=== PATIENT | female | born 1990 | race Caucasian/White ===

== ENCOUNTER 2017-03-27 14:43 | Emergency (ER) | payer MEDICARE ==
[2017-03-27 14:53] VITALS: BP 125/61
--- NOTE | 2017-03-27 15:55 | UC ---
Dental HPI - HPI Summary HPI Summary: states he has noticed swelling on right mandible for the past 4 days, he has several dental cavities but does not have dental insurance - History of Current Complaint Chief Complaint: UCDentalProblem Stated Complaint: FACIAL SWELLING Time Seen by Provider: 03/27/17 15:36 Hx Last Menstrual Period: 07/17/14 - Allergies/Home Medications Allergies/Adverse Reactions: Allergies Allergy/AdvReac Type Severity Reaction Status Date / Time No Known Allergies Allergy Verified 03/27/17 14:48 Home Medications: Home Medications Testosterone 1 syringe IM 03/27/17 [History] PMH/Surg Hx/FS Hx/Imm Hx - Surgical History Surgical History: None - Social History Alcohol Use: None Substance Use Type: None Smoking Status (MU): Current Every Day Smoker Type: Cigarettes Amount Used/How Often: 5-10 CIGARETTES Length of Time of Smoking/Using Tobacco: 1 1/2 YEARS Have You Smoked in the Last Year: Yes Review of Systems All Other Systems Reviewed And Are Negative: Yes Physical Exam Triage Information Reviewed: Yes Vital Signs: Initial Vital Signs Temp 98 F 03/27/17 14:50 Pulse 86 03/27/17 14:50 Resp 16 03/27/17 14:50 BP 125/61 03/27/17 14:50 Pulse Ox 100 03/27/17 14:50 Vital Signs Reviewed: Yes Eye Exam: Normal ENT: Positive: Hearing grossly normal, Pharynx normal, TMs normal Dental Exam: Other - dental sepsis and visible cavities in lower right quadrant premolars/molars Dental: Positive: Abscess @ Neck: Positive: Supple, Nontender, No Lymphadenopathy Respiratory Exam: Normal Respiratory: Positive: Lungs clear Cardiovascular Exam: Normal Dental Complaint Course/Dx - Course Course Of Treatment: dental abscess. Instructed to take amoxil as prescribed, PO fluids, smoking cessation - Differential Dx/Diagnosis Provider Diagnoses: Dental Abscess Discharge - Discharge Plan Condition: Stable Disposition: HOME Patient Education Materials: Dental Abscess (ED), How to Stop Smoking (ED) Referrals: Juarez Burrows DO [Primary Care Provider] - [facility] [Provider Group]
== END 2017-03-27 16:10 | disposition home or self-care (01) ==
LOC: UCEAST 14:43
DX: K04.7 Periapical abscess without sinus (principal); K02.9 Dental caries, unspecified; F17.210 Nicotine dependence, cigarettes, uncomplicated
CPT/HCPCS: 99212; G0463

== ENCOUNTER 2017-05-18 11:05 | Emergency (ER) | payer MEDICARE, MEDICAID ==
[2017-05-18] MEDS ORDERED: NS 0.9% 1000 ML* 1,000 ML IV ONE ×2 (11:33→11:35)
[2017-05-18] MEDS ORDERED: Ketorolac INJ* 30 MG/ML 1 ML VIAL IV ONE (11:35)
[2017-05-18 12:12] LABS: ABS Basophils 0 10^3/ul (0-0.2); ABS Eosinophils 0.1 10^3/ul (0-0.6); ABS Lymphocytes 1.2 10^3/ul (1.0-4.8); ABS Monocytes 0.5 10^3/ul (0-0.8); ABS Neutrophils 6.1 10^3/ul (1.5-7.7); ABS Nucleated RBC 0 10^3/ul; Eosinophil % 0.9 % (0-6); Hematocrit 43 % (35-47); Hemoglobin 14.8 g/dl (12.0-16.0); Mean Corpuscular HGB Conc 35 g/dl (31-36); Mean Corpuscular Hemoglobin 32 pg (27-31); Mean Corpuscular Volume 93 fL (80-97); Mean Platelet Volume 9 um3 (7.4-10.4); Nucleated Red Blood Cells % 0; Platelet Count 168 10^3/ul (150-450); Red Blood Count 4.58 10^6/ul (4.0-5.4); Red Cell Distribution Width 13 % (10.5-15); White Blood Count 7.9 10^3/ul (3.5-10.8)
[2017-05-18 12:49] LABS: EGFR Non-African American 84.2 (>60)
--- NOTE | 2017-05-18 13:00 | RAD ---
Indication: Left flank pain. CT of the abdomen and pelvis was performed without oral or IV contrast administration. Coronal and sagittal reconstructed images were obtained. The lung bases demonstrate no pleural fluid, nodules or masses. Heart is of normal size without evidence of pericardial effusion. Liver is normal in size. No focal lesions or intrahepatic ductal dilatation is noted. The gallbladder demonstrates no calcified gallstones. No pericholecystic fluid or wall thickening is noted. Spleen is normal in size. The pancreas demonstrates no mass or pancreatic duct dilatation. The common duct is not dilated. No adrenal lesions are noted. There is left hydronephrosis noted. There is a calculus in the left proximal ureter measuring 3 mm. Mild left hydronephrosis is noted. No retroperitoneal lymphadenopathy is noted. CT of the pelvis demonstrates ovaries to be unremarkable. No hernias are noted. The urinary bladder is unremarkable. No free fluid is identified. IMPRESSION: Calculus in the proximal left ureter measuring approximately 3 mm. Mild left hydronephrosis is noted.
[2017-05-18 13:09] LABS: Urine Appearance Cloudy; Urine Blood 3+ (Negative); Urine Color Yellow; Urine Ketones Negative (Negative); Urine Protein Negative (Negative); Urine Specific Gravity 1.016 (1.010-1.030); Urine Urobilinogen Negative (Negative)
[2017-05-18 14:15] VITALS: BP 99/68
--- NOTE | 2017-05-18 18:01 | ED ---
Wild Holcomb Angela, scribed for Williams Villasenor MD on 05/18/17 at 1137 . Abdominal Pain/Female - HPI Summary HPI Summary: This pt is a 27 y/o female [facility] [place]/o left sided abdominal pain since 08:30 this morning. Pt reports her pain began suddenly this morning and woke her up from sleep. Pt states the pain radiates to her left sided back. She additionally notes nausea and vomiting. Pt describes her vomit as bile. Pt is a current smoker. - History of Current Complaint Chief Complaint: EDAbdPain Stated Complaint: LT FLANK PAIN,VOMITING Time Seen by Provider: 05/18/17 11:32 Hx Obtained From: Patient Hx Last Menstrual Period: 07/17/14 Onset/Duration: Lasting Hours, Still Present Timing: Constant Severity Currently: Severe Pain Intensity: 10 Pain Scale Used: 0-10 Numeric Location: Other - left sided Radiates: Yes Radiates to: Back Aggravating Factor(s): Nothing Alleviating Factor(s): Nothing Associated Signs and Symptoms: Positive: Back Pain, Nausea, Vomiting Allergies/Adverse Reactions: Allergies Allergy/AdvReac Type Severity Reaction Status Date / Time No Known Allergies Allergy Verified 03/27/17 14:48 PMH/Surg Hx/FS Hx/Imm Hx Endocrine/Hematology History: Denies: Hx Diabetes, Hx Thyroid Disease Cardiovascular History: Denies: Hx Hypertension Respiratory History: Reports: Hx Asthma - Exercise induced Denies: Hx Chronic Obstructive Pulmonary Disease (COPD) GI History: Denies: Hx Ulcer Infectious Disease History: No Infectious Disease History: Denies: Hx Clostridium Difficile, Hx Hepatitis, Hx Human Immunodeficiency Virus (HIV), Hx of Known/Suspected MRSA, Hx Shingles, Hx Tuberculosis, Hx Known/ Suspected VRE, Hx Known/Suspected VRSA, History Other Infectious Disease, Traveled Outside the [place] in Last 30 Days - Family History Known Family History: Positive: Cardiac Disease - Father, Diabetes - Father, Renal Disease - Father - Social History Alcohol Use: None Substance Use Type: Reports: None Smoking Status (MU): Current Every Day Smoker Type: Cigarettes Amount Used/How Often: 5-10 CIGARETTES Length of Time of Smoking/Using Tobacco: 1 1/2 YEARS Have You Smoked in the Last Year: Yes Review of Systems Negative: Fever, Chills Positive: Abdominal Pain - left sided, Vomiting, Nausea Musculoskeletal: Negative Skin: Negative Neurological: Negative All Other Systems Reviewed And Are Negative: Yes Physical Exam - Summary Physical Exam Summary: VITAL SIGNS: Reviewed. GENERAL: Patient is a well-developed and nourished female who is lying comfortable in the stretcher. Patient is not in any acute respiratory distress. HEAD AND FACE: Normocephalic and atraumatic. EYES: PERRLA, EOMI x 2, No injected conjunctiva. EARS: Hearing grossly intact. Ear canals and tympanic membranes are WNL. MOUTH: Oropharynx within normal limits. NECK: Supple, trachea is midline, no adenopathy, no JVD. CHEST: Symmetric, no tenderness at palpation LUNGS: Clear to auscultation bilaterally. No wheezing or crackles. CVS: RRR, S1 and S2 present, no murmurs or gallops appreciated. ABDOMEN: Soft. No signs of distention. Positive bowel sounds. No rebound no guarding, and no masses palpated. No abdominal bruit or pulsations. Pt has left flank pain. Positive left costovertebral tenderness. EXTREMITIES: FROM in all major joints, no edema, no cyanosis or clubbing. NEURO: Alert and oriented x 3. No acute neurological deficits. Speech is normal. SKIN: Dry and warm Triage Information Reviewed: Yes Vital Signs On Initial Exam: Initial Vitals Temp Pulse Resp BP Pulse Ox 98.2 F 70 18 104/53 99 05/18/17 11:09 05/18/17 11:09 05/18/17 11:09 05/18/17 11:09 05/18/17 11:09 Vital Signs Reviewed: Yes Diagnostics - Vital Signs Vital Signs Temp Pulse Resp BP Pulse Ox 05/18/17 11:09 98.2 F 70 18 104/53 99 - Laboratory Result Diagrams: 05/18/17 12:05 05/18/17 11:55 Lab Statement: Any lab studies that have been ordered have been reviewed, and results considered in the medical decision making process. - CT Abdomen/Pelvis CT CT Interpretation: Positive (See Comments) - IMPRESSION: Calculus in the proximal left ureter measuring approximately 3 mm. Mild left hydronephrosis is noted. Dr. Villasenor has reviewed this radiology report. CT Interpretation Completed By: Radiologist Abdominal Pain Fem Course/Dx - Course Course Of Treatment: This pt is a 27 y/o female presenting to [facility] c/o left sided abdominal pain since 08:30 this morning. Pt reports her pain began suddenly this morning and woke her up from sleep. Pt states the pain radiates to her left sided back. She additionally notes nausea and vomiting. Pt describes her vomit as bile. Pt is a current smoker. Test results without any significant abnormalities. Urinalysis is negative for UTI. Abdomen/Pelvis CT shows calculus in the proximal left ureter measuring approximately 3 mm. Mild left hydronephrosis is noted. In the ED course the pt was given IV fluids and Toradol for the pain. After these medications, the symptoms improved and at this point the pt is pain free. Since the pt has a kidney stone of only 3 mm, the pt will be discharged with follow up with his PCP and urology. Pt is hemodynamically stable, alert and oriented x3. He agrees with the plan. - Diagnoses Provider Diagnoses: Kidney stone, Renal colic Discharge - Discharge Plan Condition: Stable Disposition: HOME Prescriptions: Ibuprofen TAB* [Motrin TAB* 600 MG] 600 mg PO Q8H PRN #20 tab PRN Reason: Pain oxyCODONE/Acetamin 5/325 MG* [Percocet 5/325 TAB*] 1 tab PO Q6H PRN #12 tab MDD 4 PRN Reason: Pain Tamsulosin CAP* [Flomax CAP*] 0.4 mg PO BEDTIME #5 cap Patient Education Materials: Kidney Stones (ED), Renal Colic (ED) Referrals: Juarez Burrows DO [Doctor of Osteopathy] - 1 Week Additional Instructions: Please follow up with your primary care provider. RETURN TO THE ED FOR ANY WORSENING SYMPTOMS. The documentation as recorded by the Wild santana Angela accurately reflects the service I personally performed and the decisions made by me, Williams Villasenor MD.
[2017-05-18] MEDS ORDERED: Tamsulosin CAP* 0.4 MG PO SCH (21:00)
== END 2017-05-18 14:12 | disposition home or self-care (01) ==
LOC: ED 11:05
DX: N20.0 Calculus of kidney (principal); N23 Unspecified renal colic; M54.9 Dorsalgia, unspecified; R11.2 Nausea with vomiting, unspecified; R10.9 Unspecified abdominal pain; F17.210 Nicotine dependence, cigarettes, uncomplicated
CPT/HCPCS: 36415; 74176; 80053; 81003; 81015; 83690; 84702; 85025; 86140; 96361; 96374; 99283; J1885

== ENCOUNTER 2017-06-04 08:54 | Emergency (ER) | payer MEDICAID, MEDICARE ==
[2017-06-04] MEDS ORDERED: NS 0.9% 1000 ML* 1,000 ML IV ONE (09:27)
[2017-06-04] MEDS ORDERED: Ketorolac INJ* 30 MG/ML 1 ML VIAL IM ONE (09:27)
[2017-06-04] MEDS ORDERED: Ondansetron INJ* 2 MG/ML VIAL IV ONE (09:27)
[2017-06-04 09:50] LABS: ABS Basophils 0 10^3/ul (0-0.2); ABS Eosinophils 0.1 10^3/ul (0-0.6); ABS Lymphocytes 0.9 10^3/ul (1.0-4.8); ABS Monocytes 0.8 10^3/ul (0-0.8); ABS Neutrophils 10.1 10^3/ul (1.5-7.7); ABS Nucleated RBC 0 10^3/ul; Eosinophil % 0.5 % (0-6); Hematocrit 45 % (35-47); Hemoglobin 15.4 g/dl (12.0-16.0); Lymphocyte % 7.8 % (25-47); Mean Corpuscular HGB Conc 34 g/dl (31-36); Mean Corpuscular Hemoglobin 32 pg (27-31); Mean Corpuscular Volume 92 fL (80-97); Mean Platelet Volume 9 um3 (7.4-10.4); Nucleated Red Blood Cells % 0; Platelet Count 197 10^3/ul (150-450); Red Blood Count 4.87 10^6/ul (4.0-5.4); Red Cell Distribution Width 12 % (10.5-15); White Blood Count 11.9 10^3/ul (3.5-10.8)
[2017-06-04 10:04] LABS: EGFR Non-African American 58.5 (>60)
[2017-06-04] MEDS ORDERED: Ketorolac INJ* 30 MG/ML 1 ML VIAL IV PUSH PRN (10:25)
--- NOTE | 2017-06-04 10:34 | RAD ---
HISTORY: Flank pain COMPARISONS: September 03, 2013, CT dated October 16, 2014 VIEWS: Frontal supine FINDINGS: BOWEL: There is a nonobstructive bowel gas pattern. There is a large amount of stool within the colon. CALCULI: The left renal calculus noted on CT is not well-visualized on the current examination. BONES AND SOFT TISSUES: There are no osseous abnormalities. OTHER FINDINGS: The lung bases are clear. There is no subphrenic gas. IMPRESSION: NONOBSTRUCTIVE BOWEL GAS PATTERN. LARGE AMOUNT OF STOOL WITHIN THE COLON.
[2017-06-04 11:25] LABS: Urine Appearance Clear; Urine Blood 1+ (Negative); Urine Color Yellow; Urine Ketones Negative (Negative); Urine Protein Negative (Negative); Urine Specific Gravity 1.015 (1.010-1.030); Urine Urobilinogen Negative (Negative)
[2017-06-04 12:53] VITALS: BP 106/59
--- NOTE | 2017-06-05 16:30 | ED ---
Wild Holcomb Angela, scribed for Williams Villasenor MD on 06/04/17 at 0959 . Abdominal Pain/Female - HPI Summary HPI Summary: This pt is a 27 y/o female presenting to [facility] c/o left flank pain since 03:00 this morning. Pt reports she was seen in the ED on 05/18/17 for left flank pain and had an abdomen/pelvis CT that showed a 3 mm calculus in the proximal left ureter. Today pt presents with left flank pain that has progressively worsened today. She notes associated symptoms of nausea and vomiting. - History of Current Complaint Chief Complaint: EDUrogenitalProblems Stated Complaint: LT FLANK PAIN Time Seen by Provider: 06/04/17 09:26 Hx Obtained From: Patient Hx Last Menstrual Period: 07/17/14 Onset/Duration: Lasting Hours, Still Present Timing: Hours Severity Currently: Severe Pain Intensity: 10 Pain Scale Used: 0-10 Numeric Location: Flank - left Radiates: No Aggravating Factor(s): Nothing Alleviating Factor(s): Nothing Associated Signs and Symptoms: Positive: Nausea, Vomiting Allergies/Adverse Reactions: Allergies Allergy/AdvReac Type Severity Reaction Status Date / Time No Known Allergies Allergy Verified 06/04/17 09:11 PMH/Surg Hx/FS Hx/Imm Hx Endocrine/Hematology History: Denies: Hx Diabetes, Hx Thyroid Disease Cardiovascular History: Denies: Hx Hypertension Respiratory History: Reports: Hx Asthma - Exercise induced Denies: Hx Chronic Obstructive Pulmonary Disease (COPD) GI History: Denies: Hx Ulcer Infectious Disease History: No Infectious Disease History: Denies: Hx Clostridium Difficile, Hx Hepatitis, Hx Human Immunodeficiency Virus (HIV), Hx of Known/Suspected MRSA, Hx Shingles, Hx Tuberculosis, Hx Known/ Suspected VRE, Hx Known/Suspected VRSA, History Other Infectious Disease, Traveled Outside the [place] in Last 30 Days - Family History Known Family History: Positive: Cardiac Disease - Father, Diabetes - Father, Renal Disease - Father - Social History Alcohol Use: None Substance Use Type: Reports: None Smoking Status (MU): Current Every Day Smoker Type: Cigarettes Amount Used/How Often: 5-10 CIGARETTES Length of Time of Smoking/Using Tobacco: 1 1/2 YEARS Have You Smoked in the Last Year: Yes Review of Systems Negative: Fever, Chills Eyes: Negative ENT: Negative Positive: Abdominal Pain, Vomiting, Nausea Positive: flank pain - left All Other Systems Reviewed And Are Negative: Yes Physical Exam - Summary Physical Exam Summary: VITAL SIGNS: Reviewed. GENERAL: Patient is a well-developed and nourished female who is lying comfortable in the stretcher. Patient is not in any acute respiratory distress. HEAD AND FACE: No signs of trauma. No ecchymosis, hematomas or skull depressions. No sinus tenderness. EYES: PERRLA, EOMI x 2, No injected conjunctiva, no nystagmus. EARS: Hearing grossly intact. Ear canals and tympanic membranes are within normal limits. MOUTH: Oropharynx within normal limits. NECK: Supple, trachea is midline, no adenopathy, no JVD, no carotid bruit, no c- spine tenderness, neck with full ROM. CHEST: Symmetric, no tenderness at palpation LUNGS: Clear to auscultation bilaterally. No wheezing or crackles. CVS: Regular rate and rhythm, S1 and S2 present, no murmurs or gallops appreciated. ABDOMEN: Soft. No signs of distention. No rebound no guarding, and no masses palpated. Bowel sounds are normal. Left costovertebral tenderness. EXTREMITIES: FROM in all major joints, no edema, no cyanosis or clubbing. NEURO: Alert and oriented x 3. No acute neurological deficits. Speech is normal and follows commands. SKIN: Dry and warm Triage Information Reviewed: Yes Vital Signs On Initial Exam: Initial Vitals Temp Pulse Resp BP Pulse Ox 97.7 F 89 18 111/52 100 06/04/17 09:07 06/04/17 09:07 06/04/17 09:07 06/04/17 09:07 06/04/17 09:07 Vital Signs Reviewed: Yes Diagnostics - Vital Signs Vital Signs Temp Pulse Resp BP Pulse Ox 06/04/17 09:07 97.7 F 89 18 111/52 100 - Laboratory Result Diagrams: 06/04/17 09:41 06/04/17 09:41 Lab Statement: Any lab studies that have been ordered have been reviewed, and results considered in the medical decision making process. - Radiology Abdomen XR Xray Interpretation: Positive (See Comments) - IMPRESSION: Nonobstructive bowel gas pattern. Large amount of stool within the colon. Dr. Villasenor has reviewed this radiology report. Radiology Interpretation Completed By: Radiologist Re-Evaluation - Re-Evaluation First Eval Re-Evaluation Time: 11:31 Comment: I reviewed the XR and lab results with the pt. Abdominal Pain Fem Course/Dx - Course Course Of Treatment: This pt is a 27 y/o female presenting to [facility] c/o left flank pain since 03:00 this morning. Pt reports she was seen in the ED on for left flank pain and had an abdomen/pelvis CT that showed a 3 mm calculus in the proximal left ureter. Today pt presents with left flank pain that has progressively worsened today. She notes associated symptoms of nausea and vomiting. Test results show WBC of 11.9 and urinalysis is 1+ blood. Abdomen XR shows nonobstructive bowel gas pattern. Large amount of stool within the colon. I believe the pt is still dealing with a kidney stone and abdomen/ pelvis CT taken a couple of weeks ago showed it was only 3 mm, therefore he was given Toradol for the pain. Pts symptoms improved after this medication. I decided not to do an abdominal/pelvis CT since the last one was only 2 weeks ago. I discussed test results with the pt and the need to follow up with PCP and urologist. Pt understands and agrees. Pt is hemodynamically stable, alert and oriented x3. - Diagnoses Provider Diagnoses: Kidney stone Discharge - Discharge Plan Condition: Stable Disposition: HOME Prescriptions: Hydrocodone/Acetaminophen [Ronald 5-325 Tablet] 1 each PO Q6H PRN #12 tablet MDD 4 PRN Reason: Pain Patient Education Materials: Kidney Stones (ED) Referrals: No Primary Care Phys,NOPCP [Primary Care Provider] - [facility] REFERRAL [Outside] Additional Instructions: Please follow up with your primary care provider. RETURN TO THE ED FOR ANY WORSENING SYMPTOMS. The documentation as recorded by the Wild santana Angela accurately reflects the service I personally performed and the decisions made by me, Williams Villasenor MD.
== END 2017-06-04 11:40 | disposition home or self-care (01) ==
LOC: ED 08:54
DX: N20.0 Calculus of kidney (principal); R11.2 Nausea with vomiting, unspecified; F17.210 Nicotine dependence, cigarettes, uncomplicated; R10.84 Generalized abdominal pain
CPT/HCPCS: 36415; 74019; 80053; 81003; 81015; 83690; 85025; 86140; 96372; 96374; 96375; 99282; J1885; J2405

== ENCOUNTER 2017-06-13 00:41 | Emergency (ER) | payer MEDICARE ==
[2017-06-13] MEDS ORDERED: NS 0.9% 1000 ML* 2,000 ML IV ONE (01:00)
[2017-06-13] MEDS ORDERED: Ondansetron INJ* 2 MG/ML VIAL IV ONE (01:00)
[2017-06-13] MEDS ORDERED: Morphine INJ* 4 MG/ML 1 ML SYRINGE (NEW SYRINGE VERSION) IV PRN (01:00)
[2017-06-13 01:15] LABS: ABS Basophils 0 10^3/ul (0-0.2); ABS Eosinophils 0 10^3/ul (0-0.6); ABS Lymphocytes 0.9 10^3/ul (1.0-4.8); ABS Monocytes 0.7 10^3/ul (0-0.8); ABS Neutrophils 11.5 10^3/ul (1.5-7.7); ABS Nucleated RBC 0 10^3/ul; Eosinophil % 0.1 % (0-6); Hematocrit 43 % (35-47); Lymphocyte % 6.6 % (25-47); Mean Corpuscular HGB Conc 35 g/dl (31-36); Mean Corpuscular Hemoglobin 32 pg (27-31); Mean Corpuscular Volume 92 fL (80-97); Mean Platelet Volume 9 um3 (7.4-10.4); Nucleated Red Blood Cells % 0; Platelet Count 198 10^3/ul (150-450); Red Blood Count 4.73 10^6/ul (4.0-5.4); Red Cell Distribution Width 13 % (10.5-15); White Blood Count 13.1 10^3/ul (3.5-10.8)
[2017-06-13 01:23] LABS: INR 1.03 (0.77-1.02)
[2017-06-13 01:32] LABS: EGFR Non-African American 61.7 (>60)
[2017-06-13 02:24] LABS: Urine Appearance Clear; Urine Blood 1+ (Negative); Urine Color Yellow; Urine Ketones 2+ (Negative); Urine Protein Negative (Negative); Urine Specific Gravity 1.023 (1.010-1.030); Urine Urobilinogen Negative (Negative)
[2017-06-13] MEDS ORDERED: Iohexol 300* (CONTRAST) 10 ML SDV IV ONE (03:03)
[2017-06-13 05:21] VITALS: BP 102/55
[2017-06-13] MEDS ORDERED: Tamsulosin CAP* 0.4 MG PO ONE (05:51)
[2017-06-13] MEDS ORDERED: Levofloxacin TAB* 500 MG PO ONE (05:51)
--- NOTE | 2017-06-13 05:58 | ED ---
Gagandeep Holcomb Sixian, scribed for Caden Huerta on 06/13/17 at 0107 . Abdominal Pain/Male - HPI Summary HPI Summary: This patient is a 27 year old M BIBA to ED with a chief complaint of intermittent abdominal pain, worsening since 1830 yesterday. The patient rates the pain 10/10 in severity. Symptoms aggravated and alleviated by nothing. Patient reports N/V. Patient denies fever, diarrhea. - History of Current Complaint Chief Complaint: EDAbdPain Stated Complaint: ABD PAIN Time Seen by Provider: 06/13/17 00:52 Hx Obtained From: Patient Onset/Duration: Gradual Onset, Still Present Timing: Intermittent, Lasting Hours Severity Currently: Severe Pain Intensity: 10 Pain Scale Used: 0-10 Numeric Aggravating Factor(s): Nothing Alleviating Factor(s): Nothing Associated Signs And Symptoms: Positive: Nausea, Vomiting. Negative: Fever, Diarrhea - Allergies/Home Medications Allergies/Adverse Reactions: Allergies Allergy/AdvReac Type Severity Reaction Status Date / Time No Known Allergies Allergy Verified 06/04/17 09:11 PMH/Surg Hx/FS Hx/Imm Hx Endocrine/Hematology History: Denies: Hx Diabetes, Hx Thyroid Disease Cardiovascular History: Denies: Hx Hypertension Respiratory History: Reports: Hx Asthma - Exercise induced Denies: Hx Chronic Obstructive Pulmonary Disease (COPD) GI History: Denies: Hx Ulcer History: Reports: Hx Kidney Stones - IN ED LAST WEEK, DX WITH LEFT RENAL CALCULI Infectious Disease History: No Infectious Disease History: Denies: Hx Clostridium Difficile, Hx Hepatitis, Hx Human Immunodeficiency Virus (HIV), Hx of Known/Suspected MRSA, Hx Shingles, Hx Tuberculosis, Hx Known/ Suspected VRE, Hx Known/Suspected VRSA, History Other Infectious Disease, Traveled Outside the [place] in Last 30 Days - Family History Known Family History: Positive: Cardiac Disease - Father, Diabetes - Father, Renal Disease - Father - Social History Alcohol Use: None Substance Use Type: Reports: None Smoking Status (MU): Current Every Day Smoker Type: Cigarettes Amount Used/How Often: 5-10 CIGARETTES Length of Time of Smoking/Using Tobacco: 1 1/2 YEARS Have You Smoked in the Last Year: Yes Review of Systems Negative: Fever Positive: Abdominal Pain, Vomiting, Nausea. Negative: Diarrhea All Other Systems Reviewed And Are Negative: Yes Physical Exam - Summary Physical Exam Summary: Appearance: Well appearing, no pain distress Skin: warm, dry, reflects adequate perfusion Head/face: normal Eyes: EOMI, MONY ENT: normal Neck: supple, non-tender Respiratory: CTA, breath sounds present Cardiovascular: Tachycardia, pulses symmetrical Abdomen: Tenderness in LLQ Bowel: present Musculoskeletal: normal, strength/ROM intact Neuro: normal, sensory motor intact, A&Ox3 Triage Information Reviewed: Yes Vital Signs On Initial Exam: Initial Vitals Temp Pulse Resp BP Pulse Ox 98.4 F 98 18 104/84 100 06/13/17 00:50 06/13/17 00:50 06/13/17 00:50 06/13/17 00:50 06/13/17 00:50 Vital Signs Reviewed: Yes Diagnostics - Vital Signs Vital Signs Temp Pulse Resp BP Pulse Ox 06/13/17 00:50 98.4 F 98 18 104/84 100 - Laboratory Lab Results: Lab Results 06/13/17 06/13/17 06/13/17 Range/Units 00:46 00:46 00:46 WBC 13.1 H (3.5-10.8) 10^3/ul RBC 4.73 (4.0-5.4) 10^6/ul Hgb 15.0 (12.0-16.0) g/dl Hct 43 (35-47) % MCV 92 (80-97) fL MCH 32 H (27-31) pg MCHC 35 (31-36) g/dl RDW 13 (10.5-15) % Plt Count 198 (150-450) 10^3/ul MPV 9 (7.4-10.4) um3 Neut % (Auto) 87.7 H (38-83) % Lymph % (Auto) 6.6 L (25-47) % [place] % (Auto) 5.5 (0-7) % Eos % (Auto) 0.1 (0-6) % Baso % (Auto) 0.1 (0-2) % Absolute Neuts (auto) 11.5 H (1.5-7.7) 10^3/ul Absolute Lymphs (auto) 0.9 L (1.0-4.8) 10^3/ul Absolute Monos (auto) 0.7 (0-0.8) 10^3/ul Absolute Eos (auto) 0 (0-0.6) 10^3/ul Absolute Basos (auto) 0 (0-0.2) 10^3/ul Absolute Nucleated RBC 0 10^3/ul Nucleated RBC % 0 INR (Anticoag Therapy) 1.03 H (0.77-1.02) APTT 30.5 (26.0-36.3) seconds Sodium 137 (133-145) mmol/L Potassium 3.6 (3.5-5.0) mmol/L Chloride 102 (101-111) mmol/L Carbon Dioxide 26 (22-32) mmol/L Anion Gap 9 (2-11) mmol/L BUN 14 (6-24) mg/dL Creatinine 1.06 H (0.51-0.95) mg/dL Est GFR ( Amer) 79.4 (>60) Est GFR (Non-Af Amer) 61.7 (>60) BUN/Creatinine Ratio 13.2 (8-20) Glucose 97 (70-100) mg/dL Calcium 10.2 (8.6-10.3) mg/dL Total Bilirubin 0.60 (0.2-1.0) mg/dL AST 22 (13-39) U/L ALT 18 (7-52) U/L Alkaline Phosphatase 70 (34-104) U/L Total Protein 7.7 (6.4-8.9) g/dL Albumin 5.0 (3.2-5.2) g/dL Globulin 2.7 (2-4) g/dL Albumin/Globulin Ratio 1.9 (1-3) Lipase < 10 L (11.0-82.0) U/L Beta HCG, Quant < 0.60 mIU/mL Urine Color Urine Appearance Urine pH (5-9) Ur Specific [place] (1.010-1.030) Urine Protein (Negative) Urine Ketones (Negative) Urine Blood (Negative) Urine Nitrate (Negative) Urine Bilirubin (Negative) Urine Urobilinogen (Negative) Ur Leukocyte Esterase (Negative) Urine WBC (Auto) (Absent) Urine RBC (Auto) (Absent) Ur Squamous Epith Cells (Absent) Urine Bacteria (Absent) Urine Glucose (Negative) 06/13/17 Range/Units 01:41 WBC (3.5-10.8) 10^3/ul RBC (4.0-5.4) 10^6/ul Hgb (12.0-16.0) g/dl Hct (35-47) % MCV (80-97) fL MCH (27-31) pg MCHC (31-36) g/dl RDW (10.5-15) % Plt Count (150-450) 10^3/ul MPV (7.4-10.4) um3 Neut % (Auto) (38-83) % Lymph % (Auto) (25-47) % [place] % (Auto) (0-7) % Eos % (Auto) (0-6) % Baso % (Auto) (0-2) % Absolute Neuts (auto) (1.5-7.7) 10^3/ul Absolute Lymphs (auto) (1.0-4.8) 10^3/ul Absolute Monos (auto) (0-0.8) 10^3/ul Absolute Eos (auto) (0-0.6) 10^3/ul Absolute Basos (auto) (0-0.2) 10^3/ul Absolute Nucleated RBC 10^3/ul Nucleated RBC % INR (Anticoag Therapy) (0.77-1.02) APTT (26.0-36.3) seconds Sodium (133-145) mmol/L Potassium (3.5-5.0) mmol/L Chloride (101-111) mmol/L Carbon Dioxide (22-32) mmol/L Anion Gap (2-11) mmol/L BUN (6-24) mg/dL Creatinine (0.51-0.95) mg/dL Est GFR ( Amer) (>60) Est GFR (Non-Af Amer) (>60) BUN/Creatinine Ratio (8-20) Glucose (70-100) mg/dL Calcium (8.6-10.3) mg/dL Total Bilirubin (0.2-1.0) mg/dL AST (13-39) U/L ALT (7-52) U/L Alkaline Phosphatase (34-104) U/L Total Protein (6.4-8.9) g/dL Albumin (3.2-5.2) g/dL Globulin (2-4) g/dL Albumin/Globulin Ratio (1-3) Lipase (11.0-82.0) U/L Beta HCG, Quant mIU/mL Urine Color Yellow Urine Appearance Clear Urine pH 7.0 (5-9) Ur Specific [place] 1.023 (1.010-1.030) Urine Protein Negative (Negative) Urine Ketones 2+ H (Negative) Urine Blood 1+ H (Negative) Urine Nitrate Negative (Negative) Urine Bilirubin Negative (Negative) Urine Urobilinogen Negative (Negative) Ur Leukocyte Esterase Trace H (Negative) Urine WBC (Auto) 1+(6-10/hpf) H (Absent) Urine RBC (Auto) 3+(>10/hpf) H (Absent) Ur Squamous Epith Cells Present H (Absent) Urine Bacteria Absent (Absent) Urine Glucose Negative (Negative) Result Diagrams: 06/13/17 00:46 06/13/17 00:46 Lab Statement: Any lab studies that have been ordered have been reviewed, and results considered in the medical decision making process. - CT abd/pel CT Interpretation Completed By: Radiologist - CT abd/pel reveals obstructive uropathy. ED physician has reviewed this radiology report. Abdominal Pain Fem Course/Dx - Course Assessment/Plan: This patient is a 27 year old M BIBA to ED with a chief complaint of intermittent abdominal pain, worsening since [address] abd/pel which reveals obstructive uropathy. In the ED course the patient was given morphine and Zofran. Bloodwork and urinalysis were obtained. The patient is diagnosed with renal calculi. The patient is instructed to follow up with urology. - Diagnoses Differential Diagnosis/HQI/PQRI: Appendicitis, Bowel Obstruction, Renal Colic, Ureteral Stone, Urinary Tract Infection Provider Diagnoses: Renal calculi Discharge - Discharge Plan Condition: Stable Disposition: HOME Prescriptions: Levofloxacin TAB* [Levaquin TAB*] 500 mg PO DAILY #9 tab oxyCODONE/Acetamin 5/325 MG* [Percocet 5/325 TAB*] 1 tab PO Q8H PRN #20 tab MDD 3 PRN Reason: Pain Tamsulosin CAP* [Flomax CAP*] 0.4 mg PO DAILY #15 cap Patient Education Materials: Kidney Stones (ED) Referrals: Michael Palomares MD [Medical Doctor] - 3 Days Additional Instructions: RETURN TO THE EMERGENCY DEPARTMENT FOR CHANGING OR WORSENING SYMPTOMS. The documentation as recorded by the Gagandeep santana Sixian accurately reflects the service I personally performed and the decisions made by Deanna higgins Emmanuel.
--- NOTE | 2017-06-13 10:41 | RAD ---
Indication: Diverticulitis. CT of the abdomen and pelvis was performed after oral and IV contrast administration. Coronal and sagittal reconstructed images were obtained. Lung bases demonstrate no pleural fluid, nodules or masses. Heart is of normal size without evidence of pericardial effusion. Liver is normal in size. No focal lesions or intrahepatic ductal dilatation is noted. Gallbladder demonstrates no calcified gallstones. No pericholecystic fluid or wall thickening is identified. Pancreas demonstrates no mass or ductal dilatation. The spleen is normal in size. No adrenal masses are noted. The kidneys demonstrate left hydronephrosis. Left hydroureter is noted. There is a calculi at the left ureterovesicular junction measuring 5 mm. The retroperitoneal lymphadenopathy is noted. No dilated loops of bowel: Is filled with stool. No hernias are identified. The visualized bony structures are otherwise unremarkable. IMPRESSION: Left hydronephrosis and hydroureter with a 5 mm calculus in the left ureterovesicular junction.
== END 2017-06-13 06:09 | disposition home or self-care (01) ==
LOC: ED 00:41
DX: N20.0 Calculus of kidney (principal); R11.2 Nausea with vomiting, unspecified; R10.9 Unspecified abdominal pain; F17.210 Nicotine dependence, cigarettes, uncomplicated
CPT/HCPCS: 36415; 74177; 80053; 81003; 81015; 83690; 84702; 85025; 85610; 85730; 87086; 96374; 99284; J2270; J2405; Q9967

== ENCOUNTER 2017-07-15 15:04 | Emergency (ER) | payer MEDICARE ==
[2017-07-15 15:27] VITALS: BP 107/59
--- NOTE | 2017-07-15 15:41 | UC ---
Ear Complaint HPI - HPI Summary HPI Summary: Patient to urgent care tonight with left ear pain feels muffled and painful - History of Current Complaint Chief Complaint: UCEar Stated Complaint: PLUGGED EAR Time Seen by Provider: 07/15/17 15:35 Hx Obtained From: Patient Hx Last Menstrual Period: no longer menstrates ?: No Onset/Duration: Sudden Onset - Began last night and was worse this morning when he woke up Severity Initially: Moderate Severity Currently: Moderate Pain Intensity: 5 Pain Scale Used: 0-10 Numeric Associated Signs/Symptoms: Positive: Hearing Loss - Allergies/Home Medications Allergies/Adverse Reactions: Allergies Allergy/AdvReac Type Severity Reaction Status Date / Time No Known Allergies Allergy Verified 07/15/17 15:27 Home Medications: Home Medications D-Methorphan/PE/Acetaminophen [Daytime Cold-Flu Softgel] 1 each PO 07/15/17 [ History] PMH/Surg Hx/FS Hx/Imm Hx Previously Healthy: Yes - on testosterone injectable - Surgical History Surgical History: None - Family History Known Family History: Positive: Cardiac Disease - Father, Diabetes - Father, Renal Disease - Father - Social History Occupation: Unemployed Lives: With Family Alcohol Use: Rare Substance Use Type: None Smoking Status (MU): Current Every Day Smoker Type: Cigarettes Amount Used/How Often: 5-10 CIGARETTES Length of Time of Smoking/Using Tobacco: 1 1/2 YEARS Have You Smoked in the Last Year: Yes Cessation Counseling: Counseled 3+Min - 10 Min Review of Systems Constitutional: Negative Skin: Negative Eyes: Negative ENT: Ear Ache - Left ear pain Respiratory: Negative Cardiovascular: Negative Gastrointestinal: Negative Genitourinary: Negative Motor: Negative Neurovascular: Negative Musculoskeletal: Negative Neurological: Negative Psychological: Negative Is Patient Immunocompromised?: No All Other Systems Reviewed And Are Negative: Yes Physical Exam Triage Information Reviewed: Yes Appearance: Well-Appearing, No Pain Distress, Well-Nourished Vital Signs: Initial Vital Signs Temp 99.5 F 07/15/17 15:22 Pulse 87 07/15/17 15:22 Resp 18 07/15/17 15:22 BP 107/59 07/15/17 15:22 Pulse Ox 99 07/15/17 15:22 Vital Signs Reviewed: Yes Eye Exam: Normal Eyes: Positive: Conjunctiva Clear ENT Exam: Normal ENT: Positive: Normal ENT inspection, Hearing grossly normal, Pharynx normal, Nasal congestion, Nasal drainage, TMs normal - Right TM, TM bulging - Left TM is erythematous and bulging no light reflex, Uvula midline. Negative: Trismus, Muffled voice, Hoarse voice, Dental tenderness, Sinus tenderness Dental Exam: Normal Neck exam: Normal Neck: Positive: Supple, Nontender, No Lymphadenopathy Respiratory Exam: Normal Respiratory: Positive: Chest non-tender, Lungs clear, Normal breath sounds, No respiratory distress, No accessory muscle use Cardiovascular Exam: Normal Cardiovascular: Positive: RRR, No Murmur, Pulses Normal, Brisk Capillary Refill Musculoskeletal Exam: Normal Musculoskeletal: Positive: Strength Intact, ROM Intact, No Edema Neurological Exam: Normal Neurological: Positive: Alert, Muscle Tone Normal Psychological Exam: Normal Skin Exam: Normal Ear Complaint Course/Dx - Course Course Of Treatment: Will treat with amoxicillin Tylenol and ibuprofen for pain - Differential Dx/Diagnosis Provider Diagnoses: Left otitis media, nicotine dependent Discharge - Sign-Out/Discharge Documenting (check all that apply): Discharge - Discharge Plan Condition: Stable Disposition: HOME Prescriptions: Amoxicillin PO (*) [Amoxicillin 875 MG (*)] 875 mg PO BID #20 tab Patient Education Materials: Ibuprofen (By mouth), Ear Infection (ED) Referrals: [facility] [Outside] - If Needed - Billing Disposition and Condition Condition: STABLE Disposition: HOME
== END 2017-07-15 15:45 | disposition home or self-care (01) ==
LOC: UCEAST 15:04
DX: H66.92 Otitis media, unspecified, left ear (principal); Z71.6 Tobacco abuse counseling; F17.210 Nicotine dependence, cigarettes, uncomplicated
CPT/HCPCS: 99212; G0463